=== PATIENT | female | born 1930 | race Caucasian/White ===

== ENCOUNTER 2017-09-09 16:50 | Emergency (ER) | payer OTHER ==
[~2017-09-09] VITALS: Ht 152.4 cm; Wt 69.9 kg
[~2017-09-09 16:50] MED LIST: Acetaminophen PO; BENICAR20 MG PO; CITALOPRAM HBR40 MG PO; CLONAZEPAM0.5 MG PO; CLONIDINE HCL0.2 MG PO; LASIX40 MG PO; LEVOTHYROXINE50 MCG PO; LISINOPRIL10 MG PO; METFORMIN HCL500 MG PO; METOPROLOL SUCC25 MG PO; MIRTAZAPINE15 MG PO; MIRTAZAPINE30 MG PO; Nifedipine PO; PEPCID20 MG PO; POTASSIUM CHLO20 ME1 PO; PRAVASTATIN SOD40 MG PO; SODIUM CHLORIDE1 GM PO; SYNTHROID88 MCG PO; ULTRAM50 MG PO; ZINC OXIDE56.7 GM TOP; ZOLOFT50 MG PO
[2017-09-09 20:46] VITALS: BP 190/90
[2017-09-09 21:47] LABS: BASOPHILS % 0.6 % (0.0-1.0); HEMATOCRIT 36.8 % (34.2-44.1); HEMOGLOBIN 12.3 g/dL (12.0-16.0); LYMPHOCYTES % 24.6 % (18.0-39.1); MEAN CORPUSCULAR HEMOGLOBIN 31.7 pg (28-32); MEAN CORPUSCULAR HGB CONC 33.4 g/dL (31-35); MEAN CORPUSCULAR VOLUME 94.8 fL (81-99); MONOCYTES % 11.3 % (4.4-11.3); NEUTROPHILS % 57.1 % (38.7-80.0); PLATELET COUNT 299 x10e3/uL (140-360); RED BLOOD COUNT 3.88 x10e6/uL (3.6-5.1); RED CELL DISTRIBUTION WIDTH 13.1 % (11.7-14.4)
[2017-09-09 21:48] LABS: ALANINE AMINOTRANSFERASE 22 IU/L (0-55); ALBUMIN 4.1 g/dL (3.5-5.0); ALKALINE PHOSPHATASE 93 IU/L (40-150); ANION GAP 17.6 mmol/L (8-16); BLOOD UREA NITROGEN 10 mg/dL (7-26); BUN/CREATININE RATIO 16 (6-25); CALCIUM 10.1 mg/dL (8.4-10.2); CARBON DIOXIDE 23 mmol/L (22-29); CHLORIDE 98 mmol/L (98-107); CREATININE, SERUM 0.61 mg/dL (0.57-1.11); EOSINOPHILS # (AUTO) 0.4 (0.0-0.4); EST GLOMERULAR FILTRATION RATE > 60 ML/MIN (60-); GLUCOSE 104 mg/dL (74-118); LYMPHOCYTES # (AUTO) 1.7 (1.0-3.2); MONOCYTES # (AUTO) 0.8 (0.2-0.8); POTASSIUM 3.6 mmol/L (3.5-5.1); SODIUM 135 mmol/L (136-145)
== END 2017-09-09 20:55 | disposition home or self-care (01) ==
LOC: ER 16:50
DX: Z03.89 Encounter for observation for other suspected diseases and conditions ruled out (principal); I10 Essential (primary) hypertension
CPT/HCPCS: 36415; 80053; 85025; 99283